=== PATIENT | female | born 1995 ===

== ENCOUNTER 2018-10-27 06:03 | Day surgery (SDC) | payer OTHER ==
[~2018-10-27] VITALS: Ht 160 cm; Wt 84.0 kg
[~2018-10-27 06:03] MED LIST: PROTONIX 40MG T40 MG PO
[2018-10-27] MEDS ORDERED: ULTRAM 50MG TAB50 MG PO (06:29)
[2018-10-27] MEDS ORDERED: FLEXERIL 1010 MG/TAB PO (06:30)
[2018-10-27] MEDS ORDERED: PRILOSEC 20MG20 MG PO (06:31)
[2018-10-27 06:49] VITALS: BP 116/58; PULSE 64; TEMP 97.7
[2018-10-27 07:40] VITALS: BP 108/64; PULSE 88; TEMP 98.3
--- NOTE | 2018-10-27 07:40 | NUR ---
Pt returns to [facility] from endo procedure via cart. Pt drowsy, but answers all questions appropriately. Pt ambulates from cart to recliner. Monitors on and alarms set. Call light within reach. Gag reflex returned. Friend present in room. Pt denies pain or nausea. Pt requesting cola and no food.
[2018-10-27 07:45] VITALS: BP 111/65; PULSE 83
--- NOTE | 2018-10-27 07:50 | NUR ---
Pt taking drink well. No complications voiced by patient.
[2018-10-27 08:00] VITALS: BP 103/67; PULSE 70
--- NOTE | 2018-10-27 08:00 | NUR ---
Pt remains drowsy, but answers all questions appropriately. Continuing to visit with friend in room.
[2018-10-27 08:10] VITALS: PULSE 88
[2018-10-27 08:15] VITALS: BP 106/66
--- NOTE | 2018-10-27 08:15 | NUR ---
Pt remains drowsy, but answers all questions appropriately. No complaints voiced by patient except being tired and wanting to eat then sleep.
--- NOTE | 2018-10-27 08:28 | NUR ---
Pt transferred out of hospital via wheelchair and Alis, assist, to private vehicle driven by friend.
== END 2018-10-27 08:28 | disposition home or self-care (01) ==
LOC: SDCO 06:03
DX: K22.2 Esophageal obstruction (principal); K21.9 Gastro-esophageal reflux disease without esophagitis; K29.70 Gastritis, unspecified, without bleeding; K58.9 Irritable bowel syndrome, unspecified; Z83.79 Family history of other diseases of the digestive system; F17.210 Nicotine dependence, cigarettes, uncomplicated
CPT/HCPCS: C1726; J2250; J3010; J7030